=== PATIENT | male | born 1995 | race Caucasian/White ===

== ENCOUNTER 2017-07-13 00:51 | Day surgery (SDC) | payer OTHER ==
[~2017-07-13] VITALS: Ht 182.9 cm; Wt 53.5 kg
[2017-07-13] VITALS (7 sets, daily range): BP systolic 126–143; BP diastolic 83–97
[~2017-07-13 00:51] MED LIST: AMOX-362 PO; HYDR-385 PO
[2017-07-13] MEDS ORDERED: LIDOCAINE/SOD BICARB 8.4% SYR ID ONE (09:35)
[2017-07-13] MEDS ORDERED: FAMOTIDINE 20 MG TAB PO ONE (09:35)
[2017-07-13] MEDS ORDERED: MIDAZOLAM 2 MG/2 ML VIAL IVP PRN (09:35)
[2017-07-13] MEDS ORDERED: ceFAZolin(*) 1 GM VIAL 1 GM in NS(*) 0.9% 100 ML ADDVANT BAG 100 ML IVPB ONE (09:35)
[2017-07-13] MEDS ORDERED: ceFAZolin 1 GM VIAL IVPB ONE (09:35)
[2017-07-13] MEDS: NORMOSOL R SOLN(*) 1000 ML BAG 1,000 ML IV PRN ×2 (10:08→12:20)
[2017-07-13] MEDS ORDERED: fentaNYL CITR 100 MCG/2 ML AMP ONE ×2 (11:15→12:19)
[2017-07-13] MEDS ORDERED: MIDAZOLAM 2 MG/2 ML VIAL ONE (11:15)
[2017-07-13] MEDS ORDERED: ONDANSETRON 4 MG/2 ML VIAL ONE (11:16)
[2017-07-13] MEDS ORDERED: PROPOFOL EMUL(*) 10MG/ML 20 ML 20 ML ONE (11:16)
[2017-07-13] MEDS ORDERED: LIDOCAINE MPF 1% 5 ML VIAL ONE (11:16)
[2017-07-13] MEDS ORDERED: DEXAMETHASONE SOD PHOS 10MG/ML ONE (11:16)
[2017-07-13] MEDS ORDERED: ROCURONIUM BROM 10 MG/ML 10 ML ONE (11:35)
[2017-07-13] MEDS ORDERED: AMOX500T10 PO (12:38)
[2017-07-13] MEDS ORDERED: OXYC-865 PO (12:38)
--- NOTE | 2017-07-14 10:29 | OPERATIVE REPORT 1 ---
EVENT DATE: July 13, 2017 SURGEON: Wolfgang Everett MD ANESTHESIOLOGIST: Miguel A Shah MD ANESTHESIA: General endotracheal. PROCEDURE Tonsillectomy. PREOPERATIVE DIAGNOSES 1. Tonsillar hypertrophy. 2. Chronic tonsillitis. POSTOPERATIVE DIAGNOSES 1. Tonsillar hypertrophy. 2. Chronic tonsillitis. INDICATIONS Please refer to the preoperative note. DESCRIPTION OF PROCEDURE The patient was positively identified in the preoperative area. He was accompanied there by both parents. Risks again explained, including but not limited to, bleeding, infection and those associated with anesthesia. Both the patient and his parents acknowledged understanding of those risks. He was then brought back to the operative suite, laid supine on the operative table and anesthesia was administered. Once asleep, the patient was positioned, then prepped and draped in usual sterile fashion. A McIvor mouth gag was placed in the patient's oral cavity. Red rubber catheter was placed through the right nostril and utilized to suspend the soft palate. The patient was noted to have 4+ tonsils. The right tonsil was then grasped with a curved Allis forceps and carefully dissected from the lateral pharyngeal wall with Bovie electrocautery. In a similar fashion, the contralateral tonsil was removed. Hemostasis was obtained with suction Bovie electrocautery. The patient was then turned to anesthesia for emergence. ESTIMATED BLOOD LOSS 10 mL. COMPLICATIONS No complications. MTDD
== END 2017-07-13 12:51 | disposition home or self-care (01) ==
LOC: OR 00:51
PROVIDERS: ATTEND Otolaryngology
DX: J35.01 Chronic tonsillitis (principal)
CPT/HCPCS: 42826; 88304; J0690; J1100; J2001; J2250; J2405; J2704; J3010; J7050

== ENCOUNTER 2017-07-23 03:54 | Emergency (ER) | payer OTHER ==
[~2017-07-23] VITALS: Ht 182.9 cm; Wt 53.5 kg
--- NOTE | 2017-07-23 04:00 | ER Report ---
History and Physical Time Seen By MD: 04:00 HPI/ROS CHIEF COMPLAINT: bleeding post-op tonsillectomy HISTORY OF PRESENT ILLNESS: This is a 21 year old male. He had a tonsillectomy performed here at [facility] by Dr. Everett on 07/13/17. He has been doing well since then until earlier in the evening when he started having blood. He has been in the bathroom since then, unable to leave. He has been trying to stop the bleeding by gently swishing cold water. He almost got the bleeding stopped at one point, but then it started up again and has not stopped. He is feeling weak and near-syncopal. He is pale and heart racing. Blood is bright red and varying in the amount and severity. He is nauseated. No chest pain or shortness of breath. No fevers or chills. REVIEW OF SYSTEMS: As above. Allergies: Coded Allergies: No Known Drug Allergies (Unverified , 07/23/17) Home Meds Reported Medications Oxycodone Hcl/Acetaminophen (PERCOCET 5-325 MG TABLET) 1 Each Tablet, 1-2 EACH PO Q4H Y for PAIN, #50 TAB 07/13/17 Discontinued Reported Medications Amoxicillin 500 Mg Tab (AMOXICILLIN 500 MG TAB) 500 Mg Tablet, 1 TAB PO Q8H for 7 Days, #21 TAB 07/13/17 Reviewed Nurses Notes: Yes Hx Smoking: No Smoking Status: Never Smoker Hx Alcohol Use: No Constitutional Vital Sign - Last 24 Hours 07/23/17 07/23/17 07/23/17 07/23/17 03:58 04:33 04:39 04:45 Temp 98.6 Pulse 107 118 Resp 14 33 B/P (MAP) 130/96 117/73 (88) 116/72 (87) Pulse Ox 98 100 O2 Delivery Room Air 07/23/17 07/23/17 07/23/17 07/23/17 04:50 04:50 05:00 05:05 Pulse 101 93 Resp 30 17 B/P (MAP) 116/76 (89) Pulse Ox 100 100 O2 Flow Rate 4.0 07/23/17 07/23/17 07/23/17 07/23/17 05:15 05:20 05:30 05:35 Pulse 82 88 Resp 11 13 B/P (MAP) 114/75 (88) 120/77 (91) Pulse Ox 100 100 07/23/17 07/23/17 07/23/17 07/23/17 05:45 05:50 06:00 06:05 Pulse 100 110 Resp 17 14 B/P (MAP) 115/75 (88) 112/79 (90) Pulse Ox 100 98 07/23/17 06:15 B/P (MAP) 123/75 (91) Physical Exam General Appearance: The patient is alert. Very pale and ill in appearance. Eyes: Pupils are equal, round. No injection or icterus, but appears to have pallor. ENT: Posterior oropharynx is covered with blood, red, with clots hanging on to the tonsillar pillars. Some active bleeding from the right tonsillar fossa, although well directly visualized. Oral mucosa is otherwise normal. Neck: Supple. Some discomfort with palpation over the right submandibular area. No lymphadenopathy. Respiratory: Lungs are clear to auscultation. Mild tachypnea. Cardiovascular: Tachycardia in the 110-120 range. No murmurs, gallops or rubs. Pale skin with minor slowing of capillary refill. Neurological: Alert and oriented x3. Skin: Warm and dry. Pallor with greyish look. DIFFERENTIAL DIAGNOSIS: After history and physical exam, differential diagnosis was considered for post-operative tonsillectomy bleeding at 10 days post-op. Based on the patient's symptoms, I am concerned about the bright red blood and the amount described. His vital signs also correlate with this and am concerned that we will need to give blood. Medical Decision Making Data Points Result Diagram: 07/23/17 0435 Laboratory Hematology Test 07/23/17 04:35 Red Blood Count 5.47 M/uL (4.00-5.60) Mean Corpuscular Volume 81.0 fL (80.0-96.0) Mean Corpuscular Hemoglobin 27.3 pg (26.0-33.0) Mean Corpuscular Hemoglobin Concent 33.7 g/dL (32.0-36.0) Red Cell Distribution Width 14.5 % (11.5-14.5) Mean Platelet Volume 8.1 fL (7.2-11.1) Neutrophils (%) (Auto) 52.8 % (39.4-72.5) Lymphocytes (%) (Auto) 37.0 % (17.6-49.6) Monocytes (%) (Auto) 9.1 % (4.1-12.4) Eosinophils (%) (Auto) 0.6 % (0.4-6.7) Basophils (%) (Auto) 0.5 % (0.3-1.4) Nucleated RBC Relative Count (auto) 0.0 /100WBC Neutrophils # (Auto) 6.6 K/uL (2.0-7.4) Lymphocytes # (Auto) 4.7 K/uL (1.3-3.6) Monocytes # (Auto) 1.1 K/uL (0.3-1.0) Eosinophils # (Auto) 0.1 K/uL (0.0-0.5) Basophils # (Auto) 0.1 K/uL (0.0-0.1) Nucleated RBC Absolute Count (auto) 0.00 K/uL Prothrombin Time 14.1 seconds (12.0-14.4) Prothromb Time International Ratio 1.09 Activated Partial Thromboplast Time 31 seconds (23-35) Chemistry Test 07/23/17 04:35 White Blood Count 12.6 k/uL (4.5-11.0) Red Blood Count 5.47 M/uL (4.00-5.60) Hemoglobin 14.9 g/dL (14.0-18.0) Hematocrit 44.3 % (42.0-52.0) Mean Corpuscular Volume 81.0 fL (80.0-96.0) Mean Corpuscular Hemoglobin 27.3 pg (26.0-33.0) Mean Corpuscular Hemoglobin Concent 33.7 g/dL (32.0-36.0) Red Cell Distribution Width 14.5 % (11.5-14.5) Platelet Count 423 K/uL (150-450) Mean Platelet Volume 8.1 fL (7.2-11.1) Neutrophils (%) (Auto) 52.8 % (39.4-72.5) Lymphocytes (%) (Auto) 37.0 % (17.6-49.6) Monocytes (%) (Auto) 9.1 % (4.1-12.4) Eosinophils (%) (Auto) 0.6 % (0.4-6.7) Basophils (%) (Auto) 0.5 % (0.3-1.4) Nucleated RBC Relative Count (auto) 0.0 /100WBC Neutrophils # (Auto) 6.6 K/uL (2.0-7.4) Lymphocytes # (Auto) 4.7 K/uL (1.3-3.6) Monocytes # (Auto) 1.1 K/uL (0.3-1.0) Eosinophils # (Auto) 0.1 K/uL (0.0-0.5) Basophils # (Auto) 0.1 K/uL (0.0-0.1) Nucleated RBC Absolute Count (auto) 0.00 K/uL Prothrombin Time 14.1 seconds (12.0-14.4) Prothromb Time International Ratio 1.09 Activated Partial Thromboplast Time 31 seconds (23-35) Coagulation Test 07/23/17 04:35 Prothrombin Time 14.1 seconds Prothromb Time International Ratio 1.09 Activated Partial Thromboplast Time 31 seconds ED Course/Re-evaluation Clinical Indication for ER IV: Hydration, IV Access ED Course Initially a CBC, Coags, and type and screen were ordered. Based on worsening symptoms, I switched the order to a type and cross. The patient had an IV started and this was difficult to get started. A liter of normal saline was ordered and 4mg of Zofran ordered. I called to try and contact the patient's surgeon, Dr. Everett, but was unable to contact him. I called our general surgeon, Dr. Garcia, to discuss the situation with him. We contacted [facility] who did not have ENT available. I then called and spoke with Dr. Nugyen at [facility]. His recommendation was to transfer to [facility] and he would take him to the OR to control the bleeding. I discussed this with the patient and his parents. We decided to transfer and discussed with Dr. Hernández in the ER who accepted the patient for transfer there. Dr. Nguyen will be working on getting arrangements made for the OR. After discussion with Dr. Hernández, we gave a dose of 1000mg of TXA IV prior to transport. The patient is doing much better with normalization of his pulse, maintaining a normal blood pressure and looks less pale and ashen after the liter of normal saline and the Zofran. Based on his looking more stable, we cancelled the blood prior to transfer. Decision to Disposition Date: Jul 23, 2017 Decision to Disposition Time: 05:27 Transfer Facility Patient was transferred to [facility] ER via ambulance. The transfer was emergent, and was required because the capabilities of the receiving hospital. Consent for transfer was obtained from the patient. [facility] was the nearest appropriate center and was chosen based on availability of ENT specialty at this time. See EMTALA for transfer orders. Depart Departure Latest Vital Signs Vital Signs Date Time Temp Pulse Resp B/P (MAP) Pulse Ox O2 Delivery O2 Flow Rate FiO2 07/23/17 06:15 123/75 (91) 07/23/17 06:05 110 14 98 07/23/17 04:50 4.0 07/23/17 03:58 98.6 Room Air Impression: Primary Impression: Haemorrhage, tonsil, postoperative Condition: Improved Disposition: XFER TO [facility] Referrals: NASH GILLIS MD (PCP) ABHISHEK DIEGO MD Jul 23, 2017 04:00
[2017-07-23] MEDS ORDERED: ONDANSETRON 4 MG/2 ML VIAL IVP ONE (04:35)
[2017-07-23] MEDS ORDERED: NS(*) 0.9% 1000 ML BAG 1,000 ML IV ONE ×2 (04:35→05:35)
[2017-07-23] MEDS ORDERED: KETAMINE HCL 500 MG/5 ML VIAL IVP ONE (04:45)
[2017-07-23] MEDS ORDERED: ENT KIT TP ONE (04:45)
[2017-07-23 04:54] LABS: PLATELET COUNT, AUTOMATED 423 K/uL (150-450)
[2017-07-23 04:55] LABS: INR 1.09
[2017-07-23] MEDS ORDERED: TRANEXAMIC AC 1000 MG/10ML SDV 1,000 MG in NS(*) 0.9% 50 ML BAG 50 ML IVPB ONE (05:20)
[2017-07-23 06:15] VITALS: BP 123/75
== END 2017-07-23 06:23 | disposition short-term general hospital (02) ==
LOC: ER 03:56
DX: K91.840 Postprocedural hemorrhage of a digestive system organ or structure following a digestive system procedure (principal)
CPT/HCPCS: 85025; 85610; 85730; 86850; 86900; 86901; 86920; 96361; 96365; 96375; 99285; J2405; J7030; J7050

== ENCOUNTER → 2017-07-23 | Outpatient (CLI) | payer SELFPAY ==
[~2017-07-23] MED LIST changes: +AMOX500T10 PO; +OXYC-865 PO
== END ==
LOC: AMB 06:06
PROVIDERS: ATTEND Nurse Practitioner
DX: J95.830 Postprocedural hemorrhage of a respiratory system organ or structure following a respiratory system procedure (principal)
CPT/HCPCS: A0425; A0426